=== PATIENT | female | born 1995 | race African-American/Black ===

== ENCOUNTER 2017-08-11 14:37 | Observation (INO) | payer SELFPAY ==
[~2017-08-11] VITALS: Ht 167.6 cm; Wt 68.0 kg
[2017-08-11] MEDS ORDERED: OCD PO (14:45)
[2017-08-11] MEDS ORDERED: PNV1TABL76 PO (14:45)
[2017-08-11] MEDS ORDERED: IRON-1 PO (14:45)
[2017-08-11 15:06] LABS: BASOPHILS % 0.3 % (0.0-2.0); HEMATOCRIT. 40.1 % (36.0-48.0); HEMOGLOBIN. 13.6 g/dL (12.0-16.0); LYMPHOCYTES % 24.3 % (20.0-50.0); MEAN CORPUSCULAR HEMOGLOBIN 28.7 pg (28.0-32.0); MEAN CORPUSCULAR VOLUME 84.6 fL (81.0-99.0); MEAN PLATELET VOLUME 8.7 fl (7.4-10.4); NEUTROPHILS % 68.4 % (40.0-76.0); PLATELET 222 x1000/uL (130-400); RED BLOOD CELL COUNT 4.74 mill/uL (4.2-5.4); RED CELL DISTRIBUTION WIDTH 14.8 % (11.6-14.6)
[2017-08-11 15:12] LABS: PARTIAL THROMBOPLASTIN TIME 25.2 sec (23.4-31.0); PROTHROMBIN TIME 10.8 sec (9.4-11.6)
[2017-08-11 15:37] LABS: *AMPHETAMINES SCREEN URINE NEGATIVE (NEGATIVE)
[2017-08-11 15:38] LABS: *BARBITURATES SCREEN URINE NEGATIVE (NEGATIVE); *BENZODIAZEPINES SCREEN URINE NEGATIVE (NEGATIVE); *COCAINE SCREEN URINE NEGATIVE (NEGATIVE); METHADONE URINE SCREEN NEGATIVE (NEGATIVE); OPIATES URINE SCREEN NEGATIVE (NEGATIVE)
[2017-08-11 15:39] LABS: PHENCYCLIDINE URINE SCREEN NEGATIVE (NEGATIVE)
[2017-08-11 15:45] LABS: CANNABINOID URINE SCREEN PRESUMTIVE POSITIVE (NEGATIVE)
== END 2017-08-11 15:49 | disposition home or self-care (01) ==
LOC: L&D 14:37
PROVIDERS: ADMIT Specialist; ATTEND Specialist
DX: O46.90 Antepartum hemorrhage, unspecified, unspecified trimester (principal); O99.019 Anemia complicating pregnancy, unspecified trimester; Z3A.00 Weeks of gestation of pregnancy not specified
CPT/HCPCS: 36415; 76856; 80305; 80349; 85025; 85610; 85730; 99281; G0378

== ENCOUNTER 2019-06-09 08:32 | Emergency (ER) | payer MEDICAID ==
[~2019-06-09] VITALS: Ht 167.6 cm; Wt 51.7 kg
[2019-06-09] MEDS ORDERED: KETOROLAC 30MG/ML VIAL IM ONE (09:30)
[2019-06-09] MEDS ORDERED: ONDANSETRON 4MG ODT PO ONE (09:30)
[2019-06-09 10:29] LABS: CLARITY URINE CLOUDY (CLEAR); COLOR URINE YELLOW (YELLOW); KETONES URINE NEGATIVE (NEGATIVE); LEUKOCYTE ESTERASE URINE NEGATIVE (NEGATIVE); NITRITE URINE NEGATIVE (NEGATIVE); OCCULT BLOOD URINE NEGATIVE (NEGATIVE); PROTEIN URINE TRACE (NEGATIVE); SPECIFIC GRAVITY URINE 1.017 (1.005-1.030); UROBILINOGEN URINE 0.2 E.U./dL (0.2-1.0)
[2019-06-09 10:50] VITALS: BP 98/52
== END 2019-06-09 11:17 | disposition home or self-care (01) ==
LOC: ER 10:22
DX: R10.2 Pelvic and perineal pain (principal); R11.0 Nausea
CPT/HCPCS: 81003; 81025; 96372; 99283; J1885; Q0162

== ENCOUNTER 2019-11-23 16:35 | Emergency (ER) | payer MEDICAID ==
[~2019-11-23] VITALS: Ht 167.6 cm; Wt 58.0 kg
[2019-11-23] MEDS ORDERED: SODIUM CHLORIDE 0.9% 1,000 ML IV ONE (17:12)
[2019-11-23] MEDS ORDERED: ACETAMINOPHEN 500MG TABLET PO ONE (17:45)
[2019-11-23 17:56] LABS: CLARITY URINE CLEAR (CLEAR); COLOR URINE YELLOW (YELLOW); KETONES URINE NEGATIVE (NEGATIVE); LEUKOCYTE ESTERASE URINE NEGATIVE (NEGATIVE); NITRITE URINE NEGATIVE (NEGATIVE); OCCULT BLOOD URINE NEGATIVE (NEGATIVE); PH URINE 5.5 (4.5-8.0); PROTEIN URINE TRACE (NEGATIVE); SPECIFIC GRAVITY URINE 1.015 (1.005-1.030)
[2019-11-23 18:26] LABS: BASOPHILS % 0.3 % (0.0-2.0); EOSINOPHILS % 1.1 % (0.0-5.0); HEMOGLOBIN. 14.3 g/dL (12.0-16.0); LYMPHOCYTES % 20.9 % (20.0-50.0); MEAN CORPUSCULAR HEMOGLOBIN 30.1 pg (28.0-32.0); MEAN CORPUSCULAR VOLUME 88.7 fL (81.0-99.0); MEAN PLATELET VOLUME 8.2 fl (7.4-10.4); MONOCYTES % 5.2 % (2.0-8.0); NEUTROPHILS % 72.5 % (40.0-76.0); PLATELET 195 x1000/uL (130-400); RED BLOOD CELL COUNT 4.74 mill/uL (4.2-5.4)
[2019-11-23 18:27] LABS: CHLORIDE 106 mEq/L (98-107)
[2019-11-23 18:38] LABS: B-HCG QUANTITATIVE < 1 mIU/mL (<3)
[2019-11-23] MEDS ORDERED: FAMOTIDINE 20MG/2ML VIAL IV ONE (19:15)
[2019-11-23 20:10] VITALS: BP 110/54
== END 2019-11-23 20:10 | disposition home or self-care (01) ==
LOC: ER 16:35
DX: R55 Syncope and collapse (principal); D57.1 Sickle-cell disease without crisis
CPT/HCPCS: 36415; 80053; 81003; 81025; 84484; 84702; 85025; 86850; 86900; 86901; 93005; 96361; 96374; 99285; J3490; J7030

== ENCOUNTER 2019-12-01 17:48 | Emergency (ER) | payer MEDICAID ==
[~2019-12-01] VITALS: Ht 162.6 cm; Wt 60.0 kg
[2019-12-01] MEDS ORDERED: BACITRACIN ZINC OINT UDPKT TOP ONE (18:30)
[2019-12-01] MEDS ORDERED: IBUPROFEN 600MG TABLET PO ONE (18:30)
[2019-12-01] MEDS ORDERED: LIDOCAINE 1%/EPI 1:100,000 10 ML VIAL IJ ONE (18:30)
[2019-12-01 20:42] VITALS: BP 110/74
== END 2019-12-01 20:57 | disposition home or self-care (01) ==
LOC: ER 17:48
DX: N76.4 Abscess of vulva (principal); D57.1 Sickle-cell disease without crisis
CPT/HCPCS: 56405; 81025; 99284; J3490

== ENCOUNTER 2023-03-04 10:47 | Emergency (ER) | payer MEDICAID ==
[~2023-03-04] VITALS: Ht 170.2 cm; Wt 80.0 kg
[2023-03-04 11:03] VITALS: BP 139/96; PULSE 66; RESP 18; TEMP 98.5; O2SAT 98
[2023-03-04] MEDS ORDERED: CEPH500C2 MT (12:00)
[2023-03-04] MEDS ORDERED: CLIN-194 MT (12:00)
== END 2023-03-04 12:40 | disposition home or self-care (01) ==
LOC: ER 10:47
DX: L03.114 Cellulitis of left upper limb (principal)
CPT/HCPCS: 99283

== ENCOUNTER 2024-09-15 18:24 | Emergency (ER) | payer MEDICAID ==
[~2024-09-15] VITALS: Ht 172.7 cm; Wt 75.0 kg
[~2024-09-15 18:24] MED LIST: CEPH500C2 MT; CLIN-194 MT
[2024-09-15 18:27] VITALS: O2SAT 100
[2024-09-15] MEDS: FLUCONAZOLE 150MG TABLET PO NR (19:15)
[2024-09-15] MEDS ORDERED: FLUCONAZOLE 100MG TABLET PO ONE (19:15)
[2024-09-15 19:31] LABS: CLARITY URINE CLEAR (CLEAR); COLOR URINE YELLOW (YELLOW); GLUCOSE URINE NEGATIVE (NEGATIVE); KETONES URINE NEGATIVE (NEGATIVE); LEUKOCYTE ESTERASE URINE 3+ (NEGATIVE); NITRITE URINE NEGATIVE (NEGATIVE); OCCULT BLOOD URINE NEGATIVE (NEGATIVE); PROTEIN URINE NEGATIVE (NEGATIVE); SPECIFIC GRAVITY URINE 1.014 (1.005-1.030); UROBILINOGEN URINE 0.2 E.U./dL (0.2-1.0)
[2024-09-15 19:33] LABS: BASOPHILS % 0.5 % (0.0-2.0); EOSINOPHILS % 2.3 % (0.0-5.0); HEMATOCRIT. 38.6 % (36.0-48.0); HEMOGLOBIN. 12.6 g/dL (12.0-16.0); LYMPHOCYTES % 30.3 % (20.0-50.0); MEAN CORPUSCULAR HEMOGLOBIN 26.6 pg (28.0-32.0); MEAN CORPUSCULAR HGB CONC 32.8 g/dL (31.0-37.0); MEAN CORPUSCULAR VOLUME 81.2 fL (81.0-99.0); MEAN PLATELET VOLUME 8.3 fl (7.4-10.4); NEUTROPHILS % 60.9 % (40.0-76.0); PLATELET 273 x1000/uL (130-400); RED BLOOD CELL COUNT 4.75 mill/uL (4.2-5.4); WHITE BLOOD COUNT 7.6 x1000/uL (4.5-11.0)
[2024-09-15 19:39] LABS: CHLORIDE 103 mEq/L (98-107); POTASSIUM 4.2 mEq/L (3.5-5.1); SODIUM 137 mEq/L (136-145)
[2024-09-15 19:40] LABS: CALCIUM 9.4 mg/dL (8.7-10.4); CARBON DIOXIDE 26 mEq/L (21-32)
[2024-09-15] MEDS: ACETAMINOPHEN 325MG TABLET PO STA (19:43)
[2024-09-15] MEDS: IBUPROFEN 600MG TABLET PO STA (19:43)
[2024-09-15 19:45] LABS: BACTERIA URINE NONE SEEN; RBC URINE 0-2 /hpf (0-2); SQUAMOUS EPITHELIAL CELL URINE FEW /lpf (RARE/1+)
[2024-09-15 19:45] LABS: CREATININE 0.7 mg/dL (0.6-1.0); GLUCOSE 91 mg/dL (70-105); UREA NITROGEN BLOOD 10 mg/dL (9-23)
[2024-09-15 19:49] VITALS: BP 130/60; PULSE 89; RESP 18; TEMP 36.6; O2SAT 97
[2024-09-15] MEDS ORDERED: AZIT250T12 MT (20:28)
[2024-09-15] MEDS ORDERED: FLUC150T46 MT (20:28)
== END 2024-09-15 21:21 | disposition home or self-care (01) ==
LOC: ER 18:24
DX: J18.9 Pneumonia, unspecified organism (principal); B37.31 Acute candidiasis of vulva and vagina; Z79.899 Other long term (current) drug therapy
CPT/HCPCS: 36415; 71045; 80048; 81003; 85025; 99284

== ENCOUNTER 2025-01-08 10:44 | Emergency (ER) | payer MEDICAID ==
[~2025-01-08] VITALS: Ht 172.7 cm; Wt 75.0 kg
[~2025-01-08 10:44] MED LIST changes: +AZIT250T12 MT; +FLUC150T46 MT
[2025-01-08 10:50] VITALS: O2SAT 99
[2025-01-08 11:45] LABS: INR 1.0
[2025-01-08 11:50] LABS: CREATININE 0.7 mg/dL (0.6-1.0); UREA NITROGEN BLOOD < 5 mg/dL (9-23)
[2025-01-08 11:52] LABS: ASPARTATE AMINOTRANSFERASE 17 IU/L (<34); BILIRUBIN DIRECT 0.1 mg/dL (<=3.0); BILIRUBIN TOTAL 0.4 mg/dL (0.1-1.0)
[2025-01-08 11:53] LABS: PROTEIN TOTAL 6.9 g/dL (6.0-8.3)
[2025-01-08 11:54] LABS: HCG SCREEN NEGATIVE
[2025-01-08] MEDS: KETOROLAC 30MG/ML VIAL IM ONE (11:54)
[2025-01-08 12:20] LABS: BASOPHILS % 0.7 % (0.0-2.0); EOSINOPHILS % 2.6 % (0.0-5.0); HEMATOCRIT. 36.1 % (36.0-48.0); HEMOGLOBIN. 11.7 g/dL (12.0-16.0); LYMPHOCYTES % 29.7 % (20.0-50.0); MEAN PLATELET VOLUME 8.0 fl (7.4-10.4); MONOCYTES % 7.2 % (2.0-8.0); NEUTROPHILS % 59.8 % (40.0-76.0); PLATELET 236 x1000/uL (130-400); RED BLOOD CELL COUNT 4.41 mill/uL (4.2-5.4); RED CELL DISTRIBUTION WIDTH 15.8 % (11.6-14.6)
[2025-01-08 12:36] LABS: INFLUENZA TYPE A Presumptive Negative (Pres. Neg.); INFLUENZA TYPE B Presumptive Negative (Pres. Neg.)
[2025-01-08 12:37] LABS: RESPIRATORY SYNCYTIAL VIRUS Not Detected (Not Detectd)
[2025-01-08 13:22] VITALS: BP 114/91; PULSE 75; RESP 18; TEMP 36.8; O2SAT 100
[2025-01-08] MEDS ORDERED: IBUP-1455 MT (13:30)
[2025-01-08] MEDS ORDERED: FAMO-135 MT (13:30)
[2025-01-08] MEDS ORDERED: GUAI-450 MT (13:30)
== END 2025-01-08 15:45 | disposition home or self-care (01) ==
LOC: ER 10:44
DX: K21.9 Gastro-esophageal reflux disease without esophagitis (principal); J06.9 Acute upper respiratory infection, unspecified; R07.89 Other chest pain; D57.1 Sickle-cell disease without crisis; Z20.822 Contact with and (suspected) exposure to COVID-19; Z79.899 Other long term (current) drug therapy
CPT/HCPCS: 99285; 71045; 87426; 80076; 80048; 81025; 84703; 85025; 85044; 85610; 85730; 87420; 87804 ×2; 36415; 93005; 96372; J1885